=== PATIENT | male | born 1960 | race Caucasian/White ===

== ENCOUNTER 2016-12-23 17:27 | Inpatient (IN) | payer OTHER ==
[~2016-12-23] VITALS: Ht 177.8 cm; Wt 74.6 kg
--- NOTE | 2016-12-23 17:58 | NUR ---
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 PT IN 05/17 PAIN AND GRABS RT GROIN. STS HE'S NEVER FELT THAT KIND OF PAIN BEFORE. NO SWELLING NOTED. PT DENIES INJURY TO SITE. DESCRIBES CP PRESSURE. COMFORT MEASURES IMPLEMENTED. CALL LIGHT W/IN REACH. VS WNL. WILL CONTINUE TO MONITOR.
[2016-12-23 18:08] LABS: BASOPHIL % 0.7 % (0-2); PLATELET COUNT 227 x10^3mcL (130-400); RED CELL DISTRIBUTION WIDTH 13.7 % (11.5-14.5)
[2016-12-23 18:16] LABS: CARBON DIOXIDE 25.3 mmol/L (21-32); CHLORIDE SERUM 100 mmol/L (98-107); CREATININE SERUM 0.8 mg/dL (0.7-1.3); GFR1 > 60 mL/min; GLUCOSE SERUM 94 mg/dL (74-106); SODIUM SERUM 136 mmol/L (136-145)
[2016-12-23 18:21] LABS: ALBUMIN 4.2 g/dL (3.4-5.0); ALKALINE PHOSPHATASE 72 U/L (46-116); ALT/SGPT 27 U/L (16-63); AST/SGOT 17 U/L (15-37); BILIRUBIN TOTAL 0.49 mg/dL (0.20-1.00); TOTAL PROTEIN, SERUM 6.6 g/dL (6.4-8.2)
--- NOTE | 2016-12-23 18:24 | NUR ---
MEDICATED ORDERED. PLEASE SEE EMR.
--- NOTE | 2016-12-23 19:06 | NUR ---
MEDICATED ORDERED. PT REPORTING INCREASE PAIN. PLEASE SEE EMR.
--- NOTE | 2016-12-23 19:09 | NUR ---
REPORT GIVEN TO BARBARA PICHARDO FOR CONTINUATION OF CARE PRIMARY RN.
--- NOTE | 2016-12-23 19:10 | NUR ---
RECEIVED REPORT FROM BARBARA ROBLEDO TO ASSUME CARE OF PT.
[2016-12-23] MEDS ORDERED: ZOCOR20 MG PO (20:10)
[2016-12-23] MEDS ORDERED: HCTZ/LISINOPRIL1 TA2 PO (20:10)
[2016-12-23] MEDS ORDERED: CORGARD80 MG PO (20:10)
[2016-12-23] MEDS ORDERED: FLECAINIDE ACE100 MG PO (20:10)
[2016-12-23] MEDS ORDERED: ASPIRIN325 M1 PO (20:11)
--- NOTE | 2016-12-23 20:21 | NUR ---
CALLED REPORT TO DEBBIE JIMENEZ TO ASSUME CARE OF PT.
[2016-12-23 20:24] LABS: AMYLASE 61 U/L (25-115); LIPASE 134 IU/L (73-393)
--- NOTE | 2016-12-23 20:35 | NUR ---
RECEIVED PT FROM ED VIA [facility], CAME IN DUE TO CHEST AND RLE PAIN. AAOX4. DENIES HEADACHE/DIZZINESS. NO SOB NOTED. DENIES CHEST PAIN/PRESSURE AT THIS TIME, PACED ON DEMAND. DENIES ABDOMINAL DISCOMFORT. C/O /10 RLE PAIN DESCRIBED ACHING, STABBING AND INTERMITTENT, WORSE WHEN HE STANDS UP AND AMBULATES. SIDE RAILS UPX2. CALL LIGHT ON REACH. DR. MARTINES AT BEDSIDE. ENDORSED TO PRIMARY NURSE DEBBIE FOR CONTINUITY OF CARE
[2016-12-23 20:37] LABS: FREE T4 0.91 ng/dL (0.76-1.46); FREE THYROXINE INDEX 2.9 ug/dL (1.4-4.5); T4(THYROXINE) 8.4 ug/dL (4.7-13.3)
[2016-12-23 20:50] VITALS: BP 132/62
[2016-12-23 20:53] VITALS: Ht 177.8 cm; Wt 74.6 kg
[2016-12-23 21:48] LABS: microscopic required? YES; urine erythrocyte TRACE (NEGATIVE)
[2016-12-23 21:54] LABS: AMPHETAMINE QUAL UR NONE DETECTED (NEG <=1000)
--- NOTE | 2016-12-23 23:19 | NUR ---
ALERT AND ORIENTED. RESP. EVEN AND UNLABORED. ON ROOM AIR, NO DISTRESS NOTED. AFEBRILE AND VITAL SIGNS STABLE. DENIES CHEST PAIN OR PRESSURE. COMPLAINED OF PAIN TO RLE, STATES 4/10, MEDICATED WITH DILAUDID 1MG IV ORDERED. IVF, NS AT 50ML/HR, INFUSING VIA RAC, SITE CLEAR. ABLE TO MOVE ALL EXTS. DUEMEDS GIVEN ORDERED, PJ.WELL. VOIDING FREELY. URINE SECIMEN SENT TO LAB. KEPT COMFORTABLE. WILL CONTINUE TO MONITOR.
--- NOTE | 2016-12-24 01:12 | NUR ---
COMPLAINED OF RT LEG PAIN, 5/10, MEDICATED WITH NORCO 1TAB PO ORDERED. WILL CONTINUE TO MONITOR.
--- NOTE | 2016-12-24 01:47 | NUR ---
APPEARS ASLEEP WITH EYES CLOSED, BUT EASILY AROUSABLE. RESP. EVEN AND UNLABORED. NO DISTRESS NOTED. IVF INTACT AND INFUSING WELL, SITE CLEAR. CALL LIGHT WITHIN REACH. WILL CONTINUE TO MONITOR.
--- NOTE | 2016-12-24 03:26 | NUR ---
NO COMPLAINTS NOTED AT THIS TIME. WILL CONTINUE TO MONITOR.
--- NOTE | 2016-12-24 05:16 | NUR ---
CONTINUE TO COMPLAIN OF RT LEG PAIN, REQUESTING PAIN MED. MEDICATED ORDERED. WILL CONTINUE TO MONITOR.
[2016-12-24 05:41] VITALS: BP 96/51
--- NOTE | 2016-12-24 06:27 | NUR ---
DUE MEDS GIVEN ORDERED. PJ. WELL.NO COMPLAINTS NOTED AT THIS TIME.KEPT COMFORTABLE. IVF INTACT AND INFUSING WELL, SITE CLEAR. WILL ENDORSE TO INCOMING NURSE.
[2016-12-24 06:31] LABS: BASOPHIL % 0.1 % (0-2); PLATELET COUNT 220 x10^3mcL (130-400); RED CELL DISTRIBUTION WIDTH 13.5 % (11.5-14.5)
[2016-12-24 06:35] LABS: CALCIUM 8.8 mg/dL (8.5-10.1); CARBON DIOXIDE 26.3 mmol/L (21-32); CHLORIDE SERUM 100 mmol/L (98-107); GFR1 > 60 mL/min; GLUCOSE SERUM 155 mg/dL (74-106); MAGNESIUM 2.2 mg/dL (1.8-2.4); PHOSPHOROUS 3.9 mg/dL (2.5-4.9); POTASSIUM SERUM 4.1 mmol/L (3.5-5.1); SODIUM SERUM 135 mmol/L (136-145)
--- NOTE | 2016-12-24 07:20 | NUR ---
RECEIVED PT FROM DEBBIE SINGH RN. PT AAOX4, SITTING UP IN BED EATING BREAKFAST WITH NO C/O PAIN AT THIS TIME. IVF TO RAC AT 50CC/HR. BREATH SOUNDS CLEAR BILATERALLY. ABDOMEN SOFT WITH ACTIVE BOWEL SOUNDS. PULSES PRESENT WITH NO EDEMA NOTED. CALL LIGHT WITHIN REACH.
[2016-12-24 08:29] VITALS: BP 113/51
--- NOTE | 2016-12-24 09:15 | NUR ---
PT OFF OF FLOOR TO RADIOLOGY.
--- NOTE | 2016-12-24 09:30 | NUR ---
PT BACK FROM RADIOLOGY, IV DILAUDID GIVEN FOR PT C/O RLE PAIN. CALL LIGHT WITHIN REACH.
[2016-12-24 10:29] LABS: T3 TOTAL 1.24 ng/mL
--- NOTE | 2016-12-24 11:30 | NUR ---
PT RESTING IN BED WITH EYES CLOSED WITH NO SIGNS OF DISCOMFORT AT THIS TIME. CALL LIGHT WITHIN REACH.
--- NOTE | 2016-12-24 13:20 | NUR ---
PT SITTING UP ON EDGE OF BED, SCHEDULED PO MOTRIN GIVEN FOR C/O RLE PAIN/DISCOMFORT. MED STUDENT AT BEDSIDE FOR INTERVIEW/EXAM.
[2016-12-24 13:47] VITALS: BP 106/51
--- NOTE | 2016-12-24 15:30 | NUR ---
IV DILAUDID GIVEN FOR PT C/O SEVERE PAIN AFTER AMBULATING IN HALLWAY.
--- NOTE | 2016-12-24 16:35 | NUR ---
PT RESTING IN BED WATCHING TV. NO SIGNS OF DISTRESS AT THIS TIME. CALL LIGHT WITHIN REACH.
[2016-12-24 18:40] VITALS: BP 105/41
--- NOTE | 2016-12-24 19:40 | NUR ---
REC'D PT FROM DAY SHIFT NURSE. PT AAOX4, SPEECH CLEAR. RESTING IN BED COMFORTABLY. C/O RLE PAIN 02/14. REFUSED NORCO. WILL GIVE DILAUDID PER ORDER. DENIES NUMBNESS OR TINGLING. AMBULATORY. ON TELE #16. DENIES CP, PALPITATIONS, OR DIZZINESS. NO RESP DISTRESS OR SOB. CALL LIGHT WITHIN REACH, BED AT LOWEST POSITION. WILL CONTINUE TO MONITOR.
[2016-12-24 22:24] VITALS: BP 104/55
--- NOTE | 2016-12-24 22:50 | NUR ---
AMBIEN GIVEN PER ORDER FOR INSOMNIA. PT C/O SOME PAIN AT THIS TIME 1-10/17 TO RLE. K PAD IN PLACE. CALL LIGHT WITHIN REACH, BED AT LOWEST POSITION. WILL CONTINUE TO MONITOR.
--- NOTE | 2016-12-25 03:18 | NUR ---
PT RESTING IN BED WITH EYES CLOSED. NO SIGNS OF DISTRESS NOTED. BREATHING EVEN/UNLABORED. CALL LIGHT WITHIN REACH, BED AT LOWEST POSITION. WILL CONTINUE TO MONITOR.
[2016-12-25 06:00] VITALS: BP 133/48
[2016-12-25 06:19] LABS: CALCIUM 9.1 mg/dL (8.5-10.1); CARBON DIOXIDE 28.9 mmol/L (21-32); CHLORIDE SERUM 103 mmol/L (98-107); CREATININE SERUM 0.9 mg/dL (0.7-1.3); GFR1 > 60 mL/min; GLUCOSE SERUM 122 mg/dL (74-106); POTASSIUM SERUM 3.8 mmol/L (3.5-5.1); SODIUM SERUM 141 mmol/L (136-145)
[2016-12-25 06:22] LABS: BASOPHIL % 0.3 % (0-2); PLATELET COUNT 227 x10^3mcL (130-400); RED CELL DISTRIBUTION WIDTH 13.8 % (11.5-14.5)
--- NOTE | 2016-12-25 08:00 | NUR ---
PT ON BED, AWAKE, ALERT, AND ORIENTED. HAS NO COMPLAINT OF PAIN, SOB, OR DIZZINESS. RESPONDS WELL TO QUESTION AND ANSWER. CLEAR SAÚL LUNG FIELD, SYMMETRICAL CHEST EXPANSION AND UNLABORED. ACTIVE BOWEL SOUNDS NOTED. NON DISTENDED. SKIN INTACT. SIDE RAILS UP, CALL LIGHT WITHIN REACH, WILL CONTINUE TO MONITOR
[2016-12-25 09:44] VITALS: BP 109/54
[2016-12-25] MEDS ORDERED: APAP/OXYCODONE1 TA4 PO (11:48)
[2016-12-25] MEDS ORDERED: MOT800 PO ×2 (11:49→11:56)
[2016-12-25 12:39] VITALS: BP 109/54
== END 2016-12-25 13:02 | disposition home or self-care (01) | DRG 205 ==
LOC: ED 17:27 → DU 19:57
PROVIDERS: Emergency Medicine; ADMIT Family Medicine
DX: M94.0 Chondrocostal junction syndrome [Tietze] (principal); N17.0 Acute kidney failure with tubular necrosis; E87.1 Hypo-osmolality and hyponatremia; G89.29 Other chronic pain; R10.31 Right lower quadrant pain; M54.5 Low back pain; I10 Essential (primary) hypertension; N40.0 Benign prostatic hyperplasia without lower urinary tract symptoms; F12.90 Cannabis use, unspecified, uncomplicated; I48.0 Paroxysmal atrial fibrillation; G43.909 Migraine, unspecified, not intractable, without status migrainosus; R73.03 Prediabetes; R31.9 Hematuria, unspecified; M99.09 Segmental and somatic dysfunction of abdomen and other regions; Z95.0 Presence of cardiac pacemaker; Z79.82 Long term (current) use of aspirin; Z68.25 Body mass index [BMI] 25.0-25.9, adult; Z88.5 Allergy status to narcotic agent; Z79.899 Other long term (current) drug therapy; Z91.018 Allergy to other foods
CPT/HCPCS: 80307; 83880; 84439; J1100; J1170; J1885; J2405; J3010; J7030; Q0092

== ENCOUNTER 2018-10-31 05:20 | Emergency (ER) | payer OTHER ==
[~2018-10-31] VITALS: Ht 177.8 cm; Wt 75.3 kg
[~2018-10-31 05:20] MED LIST: APAP/OXYCODONE1 TA4 PO; ASPIRIN325 M1 PO; CORGARD80 MG PO; FLECAINIDE ACE100 MG PO; HCTZ/LISINOPRIL1 TA2 PO; MOT800 PO; ZOCOR20 MG PO
[2018-10-31 05:31] VITALS: Ht 177.8 cm; Wt 75.3 kg
[2018-10-31 07:50] VITALS: BP 149/76
== END 2018-10-31 07:39 | disposition home or self-care (01) ==
LOC: ED 05:20
DX: M25.512 Pain in left shoulder (principal); I10 Essential (primary) hypertension; Z88.8 Allergy status to other drugs, medicaments and biological substances; Z88.5 Allergy status to narcotic agent; Z98.890 Other specified postprocedural states; Z95.0 Presence of cardiac pacemaker
CPT/HCPCS: J1885; Q0092; Q0162